=== PATIENT | female | born 2000 | race African-American/Black ===

== ENCOUNTER 2019-08-12 19:03 | Day surgery (SDC) | payer OTHER ==
[2019-08-12 19:32] VITALS: BP 118/61; TEMP 98.3; BMI 32.4
[2019-08-12] MEDS ORDERED: hydrALAZINE 20 MG/ML VIAL SLOW IVP PRN (19:52)
[2019-08-12 20:30] LABS: #Basophils 0.1 thou/uL (0.0-0.2); #Eosinphils 0.1 thou/uL (0.0-0.7); #Lymphocytes 1.5 thou/uL (1.20-3.40); #Monocytes 0.7 thou/uL (0.11-0.59); #Neutrophils 5.2 thou/uL (1.40-6.50); %Basophils 0.7 % (0.0-1.0); %Eosinophils 0.7 % (0.0-10.0); %Lymphocytes 20.2 % (28.0-48.0); %Monocytes 8.7 % (0.0-4.0); %Neutrophils 69.7 % (31.0-61.0); Hemoglobin 9.8 g/dL (12.0-16.0); Mean Corpuscular HGB CONC 32.4 g/dL (32.0-36.0); Mean Corpuscular Hemoglobin 25.6 pg (25.0-35.0); Mean Corpuscular Volume 79.1 fL (78.0-98.0); Platelet Count 181 thou/uL (130-400); RBC Distribution Width 15.9 % (11.5-14.5); Red Blood Cell (RBC) Count 3.81 mill/uL (4.00-5.20); White Blood Cell (WBC) Count 7.5 thou/uL (4.8-10.8)
[2019-08-12 20:49] LABS: ALT (SGPT) 10 U/L (8-55); AST (SGOT) 11 U/L (5-30); Alkaline Phosphatase 108 U/L (40-150); Anion Gap 11 mmol/L (10-20); BUN (Urea Nitrogen) 6 mg/dL (8.4-21.0); Bilirubin, Total 0.2 mg/dL (0.2-1.2); Calc. Creatinine Clearance 215 mL/min (70-130); Calcium 8.5 mg/dL (7.8-10.44); Carbon Dioxide 20 mmol/L (22-29); Chloride 108 mmol/L (98-107); Estimated GFR-MDRD Greater than 90; Globulin 3.2 g/dL (2.4-3.5); Glucose 113 mg/dL (70-105); Potassium 3.4 mmol/L (3.5-5.1); Protein, Total 6.2 g/dL (6.0-8.3); Sodium 136 mmol/L (136-145)
[2019-08-12 21:23] LABS: Bacteria/HPF None Seen HPF (None Seen); Bilirubin Negative (Negative); Blood, Urine Negative (Negative); Clarity Clear (Clear); Glucose, Urine (Dipstick) Normal (Negative); Leukocyte Negative Leu/uL (Negative); Nitrite Negative (Negative); Protein, Urine (Dipstick) Negative (Neg-Trace); RBC/HPF 0-3 HPF (0-3); Squamous Epithelial 0-3 HPF (0-3); Urobilinogen Normal mg/dL (Less than 2); WBC/HPF 0-3 HPF (0-3)
--- NOTE | 2019-08-13 07:36 | SS ---
DATE OF ADMISSION: 08/12/2019 DATE OF DISCHARGE: 08/12/2019 EVALUATING PHYSICIAN: Alexander Peterson MD REGULAR PHYSICIAN: Zeke Walters MD CHIEF COMPLAINT: Upper abdominal pain. HISTORY OF PRESENT ILLNESS: Ms. Manriquez is a 18-year-old black G3, P1, estimated date of confinement, 09/22/2019, who presents complaining of upper abdominal pain since earlier this afternoon. She arrived by ambulance. She denies vaginal bleeding, uterine contractions, nausea, vomiting, fever, chills, or diarrhea. She does not relate this pain to any specific action. Her care has been with Dr. Walters and has been without complications. PAST OBSTETRICAL HISTORY: Includes one section at term for failure to progress. It also appears she had a delivery of a 20-week demise, I am uncertain as to the exact details of this. She is a poor historian in that regard. PAST MEDICAL HISTORY: None. PAST SURGICAL HISTORY: x1, as above. CURRENT MEDICATIONS: vitamins. ALLERGIES: NO KNOWN ALLERGIES. SOCIAL HISTORY: Denies tobacco, alcohol, or drug use. FAMILY HISTORY: Unremarkable. REVIEW OF SYSTEMS: Denies nausea, vomiting, fever, chills, ruptured membranes, or vaginal bleeding. PHYSICAL EXAMINATION: VITAL SIGNS: In triage, her vital signs are stable and she is afebrile. GENERAL: She is quiet, but in no acute distress. ABDOMEN: Soft, nontender, and gravid. There is no guarding or rebound. There is no specific tenderness in either the upper right or upper left quadrant. heart rate tracing is stable with spontaneous accelerations. No significant regular contractions are seen. LABORATORY DATA: White count 7.5, hemoglobin and hematocrit 9.8 and 30.1, platelet count 181,000. Chemistries; sodium 136, potassium 3.4, BUN is 6, creatinine 0.57. Glucose 113, total bilirubin 0.2, AST and ALT are 11 and 10 respectively. Alkaline phosphatase is 108. Urinalysis shows a specific gravity of 1.012 with negative protein, normal glucose, negative ketones, negative blood, negative nitrites, negative bilirubin, and negative leukocyte esterase. ASSESSMENT: 1. A 34-week intrauterine . 2. Suspect reflux. PLAN: The patient will be dismissed home. She was told to use Pepcid over the counter 1-2 tablets twice a day for any discomfort that she has. She has an appointment with Dr. Walters later this week. Job ID: [id number]
== END 2019-08-12 22:10 | disposition home or self-care (01) ==
LOC: L&D/OP 19:03
PROVIDERS: ATTEND Family Medicine
DX: O99.89 Other specified diseases and conditions complicating pregnancy, childbirth and the puerperium (principal); R10.10 Upper abdominal pain, unspecified; Z3A.34 34 weeks gestation of pregnancy
CPT/HCPCS: 36415; 80053; 81003; 85025; 99283

== ENCOUNTER 2019-09-09 21:17 | Day surgery (SDC) | payer OTHER ==
[2019-09-09 21:40] VITALS: BMI 34.9
[2019-09-09] MEDS ORDERED: metroNIDAZOLE 500 MG TAB PO SCH (23:00)
[2019-09-10] MEDS ORDERED: FLU VACC QS2019-20(6MOS UP)/PF 60 MCG/0.5 ML SYRINGE IM ONE (09:00)
[2019-09-11 00:03] LABS: Chlam.trachomatis by PCR,Urine Not Detected (NotDetected)
== END 2019-09-09 23:45 | disposition home or self-care (01) ==
LOC: L&D/OP 21:17
PROVIDERS: ATTEND Family Medicine
DX: O46.90 Antepartum hemorrhage, unspecified, unspecified trimester (principal); Z3A.00 Weeks of gestation of pregnancy not specified
CPT/HCPCS: 87480; 87491; 87510; 87591; 87660

== ENCOUNTER 2019-09-14 19:47 | Day surgery (SDC) | payer OTHER ==
[2019-09-14] MEDS ORDERED: hydrALAZINE 20 MG/ML VIAL SLOW IVP PRN (20:28)
--- NOTE | 2019-09-14 20:30 | PDOC.LDHP ---
Labor and Delivery H&P Chief complaint: other (Right groin pain after walking) HPI: EGA 38 weeks [address] hernández 18 yo at 38 weeks who states was walking today and now has right groin discomfort. No VB, no LOF, no trauma, good FM. No fever Review of Systems: Complete ROS performed and as per HPI Current gestational age (weeks): 38 (4 days) Grav: 3 Para: 1 OB History Details: CS X1 Current complications: none Abnormal US findings: No Current medications: pre-josy vitamins Previous surgical history: low tranverse CS Allergies/Adverse Reactions: Allergies Allergy/AdvReac Type Severity Reaction Status Date / Time No Known Allergies Allergy Verified 08/12/19 19:25 Social history: none - Physical Exam Vital signs reviewed and normal: yes (115/63 107 98 20) Heart: RRR Lungs: CTAB Abdomen: gravid Extremeties: no edema FHT: category 1 [place] contractions every: none - Assessment Discomforts of preg at 38 weeks 4 days after walking. Location of pain suspcious for musculoskeletal spasm. No evidence Labor at this time. Has RTCS scheduled 09/22 - Plan Plan: observation in L&D (reassurrance give. May follow up in 24 hrs. NST reactive)
[2019-09-14 21:23] VITALS: BP 115/63; TEMP 98; BMI 33.7
== END 2019-09-14 21:09 | disposition home or self-care (01) ==
LOC: L&D/OP 19:47
PROVIDERS: ATTEND Family Medicine
DX: O99.89 Other specified diseases and conditions complicating pregnancy, childbirth and the puerperium (principal); R10.30 Lower abdominal pain, unspecified; O34.211 Maternal care for low transverse scar from previous cesarean delivery; Z3A.38 38 weeks gestation of pregnancy

== ENCOUNTER 2019-09-22 09:16 | Inpatient (IN) | payer OTHER ==
[2019-09-22] MEDS ORDERED: CEFAZOLIN 2 GM in Premix Bag 1 BAG IVPB SCH (09:22)
[2019-09-22] MEDS ORDERED: Promethazine HCl 25 MG/ML VIAL IM PRN ×4 (09:22→14:44)
[2019-09-22] MEDS ORDERED: Ondansetron PF 4 MG/2 ML Vial IVP PRN ×3 (09:22→14:44)
[2019-09-22] MEDS ORDERED: hydrALAZINE 20 MG/ML VIAL SLOW IVP PRN ×2 (09:22→14:44)
[2019-09-22] MEDS ORDERED: Bicitra 30 ML UDCUP PO SCH (09:22)
[2019-09-22] MEDS ORDERED: Lactated Ringer's 1,000 ML IV SCH (09:22)
[2019-09-22 10:10] VITALS: BMI 34.1
[2019-09-22 10:11] LABS: Hemoglobin 9.9 g/dL (12.0-16.0); Mean Corpuscular HGB CONC 31.5 g/dL (32.0-36.0); Mean Corpuscular Hemoglobin 23.5 pg (25.0-35.0); Mean Corpuscular Volume 74.5 fL (78.0-98.0); Mean Platelet Volume 8.9 fL (7.4-10.4); Platelet Count 202 thou/uL (130-400); RBC Distribution Width 16.1 % (11.5-14.5); White Blood Cell (WBC) Count 6.8 thou/uL (4.8-10.8)
[2019-09-22] MEDS ORDERED: FLU VACC QS2019-20(6MOS UP)/PF 60 MCG/0.5 ML SYRINGE IM ONE (10:30)
[2019-09-22 10:50] LABS: HBSAg Index 0.16 S/CO (0-0.99); Hep B Surf Ag Non-Reactive S/CO (NonReactive); Syphilis Antibody Nonreactive (Nonreactive); Syphilis Antibody Index 0.03 S/CO (<1.00 Non-Reactive)
[2019-09-22] MEDS ORDERED: NS / Oxytocin 40 units/1000ml 1,000 ML ONE (11:23)
[2019-09-22] MEDS ORDERED: MORPHINE 5 MG/10 ML PF VIAL ONE (12:08)
[2019-09-22] MEDS ORDERED: Oxytocin 10 UNITS/ML VIAL ONE ×2 (12:08→12:57)
[2019-09-22] MEDS ORDERED: Ondansetron PF 4 MG/2 ML Vial ONE (12:08)
[2019-09-22] MEDS ORDERED: ePHEDrine/0.9% NaCl/PF SYRINGE 50 mg/10 ml ONE (12:22)
[2019-09-22] MEDS ORDERED: PHENYLEPHRINE-NS 100 MCG/ML 10 ML SYRINGE ONE (12:22)
[2019-09-22] MEDS ORDERED: Promethazine HCl 25 MG/ML VIAL SLOW IVP PRN (13:15)
[2019-09-22] MEDS ORDERED: Ondansetron HCl/PF 4 MG/2 ML Vial IVP PRN (13:15)
[2019-09-22] MEDS ORDERED: Promethazine HCl 25 MG SUPP PR PRN (13:15)
[2019-09-22] MEDS ORDERED: Naloxone HCl 0.4 mg/ml Vial IV PRN (13:15)
[2019-09-22] MEDS ORDERED: Ketorolac Tromethamine 30 MG/ML VIAL IVP PRN (13:15)
[2019-09-22] MEDS ORDERED: Naloxone HCl 0.4 mg/ml Vial IVP PRN ×2 (13:15)
[2019-09-22] MEDS ORDERED: diphenhydrAMINE 50 MG/ML VIAL IVP PRN (13:15)
[2019-09-22] MEDS ORDERED: Communication Order-Pharmacy FS PRN (13:15)
[2019-09-22] MEDS ORDERED: Ketorolac Tromethamine 30 MG/ML VIAL ONE (13:44)
[2019-09-22] MEDS ORDERED: Simethicone Chewable 80 MG TAB PO PRN (14:44)
[2019-09-22] MEDS ORDERED: Methylergonovine 0.2 MG/ML VIAL IM PRN (14:44)
[2019-09-22] MEDS ORDERED: Lanolin Ointment 7 GM TUBE TOP PRN (14:44)
[2019-09-22] MEDS ORDERED: Bisacodyl 10 MG SUPP PR PRN (14:44)
[2019-09-22] MEDS ORDERED: NS / Oxytocin 40 units/1000ml 1,000 ML IV SCH (14:44)
[2019-09-22] MEDS ORDERED: Meperidine HCl/PF 25 MG/ML VIAL IM PRN (14:44)
[2019-09-22] MEDS ORDERED: HYDROcodone/Acetaminophen 5/325 mg Tablet PO PRN (14:44)
[2019-09-22] MEDS ORDERED: Misoprostol 200 MCG TAB PR PRN (14:44)
[2019-09-22] MEDS ORDERED: diphenhydrAMINE 25 MG CAP PO PRN (14:44)
[2019-09-22] MEDS: Ferrous Sulfate 325 MG TAB PO SCH (15:47)
[2019-09-22] MEDS: Ketorolac Tromethamine 30 MG/ML VIAL IVP SCH (21:49)
[2019-09-22] MEDS: Docusate Calcium (SURFAK) 240 MG CAP PO SCH (23:30)
[2019-09-22] MEDS ORDERED: Ketorolac Tromethamine 30 MG/ML VIAL IVP SCH (23:59)
[2019-09-23] MEDS ORDERED: Sodium Chloride 0.9% 10 ML ONE (03:43)
[2019-09-23] MEDS: Ketorolac Tromethamine 30 MG/ML VIAL IVP SCH ×2 (03:49→11:32)
[2019-09-23 05:57] LABS: Hemoglobin 9.4 g/dL (12.0-16.0); Mean Corpuscular HGB CONC 30.7 g/dL (32.0-36.0); Mean Corpuscular Hemoglobin 22.9 pg (25.0-35.0); Mean Corpuscular Volume 74.5 fL (78.0-98.0); Platelet Count 157 thou/uL (130-400); Red Blood Cell (RBC) Count 4.09 mill/uL (4.00-5.20); White Blood Cell (WBC) Count 6.7 thou/uL (4.8-10.8)
[2019-09-23] MEDS: Docusate Calcium (SURFAK) 240 MG CAP PO SCH ×2 (11:33→22:26)
[2019-09-23] MEDS: Ferrous Sulfate 325 MG TAB PO SCH ×2 (11:33→22:22)
[2019-09-23] MEDS: Prenatal Vitamin 1 TAB PO SCH (11:34)
[2019-09-23] MEDS ORDERED: Adacel (T-DAP) 0.5 ML SYRINGE IM ONE (14:44)
[2019-09-23] MEDS: Ibuprofen 800 MG TAB PO SCH ×2 (15:44→22:26)
[2019-09-23] MEDS: HYDROcodone/Acetaminophen 5/325 mg Tablet PO PRN (19:48)
[2019-09-24] MEDS: HYDROcodone/Acetaminophen 5/325 mg Tablet PO PRN ×5 (04:36→21:16)
[2019-09-24] MEDS: Ibuprofen 800 MG TAB PO SCH ×3 (06:16→21:17)
[2019-09-24] MEDS: Docusate Calcium (SURFAK) 240 MG CAP PO SCH ×2 (08:38→21:17)
[2019-09-24] MEDS: Ferrous Sulfate 325 MG TAB PO SCH ×2 (08:38→16:32)
[2019-09-24] MEDS: Prenatal Vitamin 1 TAB PO SCH (08:38)
--- NOTE | 2019-09-24 21:16 | OP ---
DATE OF PROCEDURE: 09/22/2019 RESIDENT: Yuli Campbell DO PROCEDURE: Repeat low-transverse section. PREOPERATIVE DIAGNOSES: 1. Term intrauterine . 2. Previous section. 3. History of at 20 weeks. POSTOPERATIVE DIAGNOSES: 1. Term intrauterine , delivered. 2. Previous section. ANESTHESIA: Spinal. INDICATIONS: This is a 18-year-old G3, P1-0-1-1 at 39 weeks gestation who presented for repeat scheduled . PROCEDURE IN DETAIL: After risks, benefits, and alternatives were explained to the patient, she gave informed consent. Preoperative antibiotics included cefazolin 2 g IV. The patient was taken to the operating room and spinal anesthesia was initiated. She was placed in supine position with left tilt, and prepped and draped in usual sterile fashion. A Pfannenstiel incision was made with a scalpel and carried down to the level of the fascia, which was sharply nicked. The fascial cut was extended bilaterally with Valdez scissors. Inferior and superior edges of the cut fascial edges were elevated with Jason clamps and underlying rectus muscles were sharply and bluntly dissected free. The recti were divided digitally and retracted manually. The peritoneum was entered bluntly and retracted manually. Bladder blade was placed. A low-transverse score was made with a scalpel and the uterus was entered in the midline with the scalpel. Clear fluid was seen. Hysterotomy was extended manually. Infant was noted to be vertex and was easily delivered by fundal pressure. Mouth and nares were bulb suctioned. Cord was clamped and cut and grossly normal. Female infant was handed to awaiting nurse. Cord blood was obtained. Placenta was manually extracted spontaneously and delivered, and found to be intact with 3-vessel cord and discarded. The uterus was externalized and the endometrium was curetted with a dry lap. The bladder blade was replaced and the uterus was closed with a running locking #1 Monocryl followed by several [id number] stitches for hemostasis. The abdomen was irrigated with saline and suctioned free of clots. The uterus was internalized and the hysterotomy were again noted to be hemostatic. The fascia was closed with a running nonlocking 0 PDS suture. The subcutaneous tissue was irrigated and bleeders were cauterized. Subcutaneous tissue was closed using 2-0 plain gut. The skin was approximated with avani and pressure dressing was placed. All counts were correct. The patient tolerated the procedure well and was taken to the recovery room in stable condition. ESTIMATED BLOOD LOSS: 640 mL. COMPLICATIONS: None. SPECIMENS: Cord blood sent to lab for blood type. FINDINGS: Grossly normal female infant with Apgars of 8 and 9 at 1 and 5 minutes respectively. Grossly normal placenta with 3-vessel cord discarded. DRAINS: Wolfe to gravity, draining clear urine. Job ID: [id number]
[2019-09-25] MEDS: HYDROcodone/Acetaminophen 5/325 mg Tablet PO PRN ×2 (04:57→10:24)
[2019-09-25] MEDS: Ibuprofen 800 MG TAB PO SCH ×2 (04:59→14:07)
[2019-09-25] MEDS: Ferrous Sulfate 325 MG TAB PO SCH ×2 (08:50→17:12)
[2019-09-25] MEDS: Prenatal Vitamin 1 TAB PO SCH (08:51)
[2019-09-25] MEDS: Docusate Calcium (SURFAK) 240 MG CAP PO SCH (08:51)
[2019-09-25 18:10] VITALS: BP 130/86; TEMP 98.3
== END 2019-09-25 18:05 | disposition home or self-care (01) | DRG 788 ==
LOC: L&D 09:16 → 3SW 16:19
PROVIDERS: ADMIT Family Medicine; ATTEND Family Medicine
PROC: 10D00Z1 Extraction of Products of Conception, Low, Open Approach (ICD-10-PCS; principal; 2019-09-22)
PROC: 3E02340 Introduction of Influenza Vaccine into Muscle, Percutaneous Approach (ICD-10-PCS; 2019-09-22)
DX: O34.211 Maternal care for low transverse scar from previous cesarean delivery (principal); Z3A.39 39 weeks gestation of pregnancy; Z37.0 Single live birth; Z23 Encounter for immunization
CPT/HCPCS: 36415; 51702; 85027; 86780; 86850; 86900; 86901; 87340; J1885; J2274; J2405; J2590

== ENCOUNTER 2019-09-30 13:49 | Inpatient (IN) | payer OTHER ==
[~2019-09-30 13:49] MED LIST: Iopamidol 370 76% 100 ML VIAL ONE
[2019-09-30 14:20] LABS: #Eosinphils 0.1 thou/uL (0.0-0.7); #Lymphocytes 1.1 thou/uL (1.20-3.40); #Monocytes 0.5 thou/uL (0.11-0.59); #Neutrophils 9.7 thou/uL (1.40-6.50); %Eosinophils 0.6 % (0.0-10.0); %Neutrophils 85.4 % (31.0-61.0); Hemoglobin 12.2 g/dL (12.0-16.0); Mean Corpuscular HGB CONC 31.7 g/dL (32.0-36.0); Mean Corpuscular Hemoglobin 24.2 pg (25.0-35.0); Mean Corpuscular Volume 76.5 fL (78.0-98.0); Mean Platelet Volume 8.2 fL (7.4-10.4); Platelet Count 233 thou/uL (130-400); RBC Distribution Width 16.4 % (11.5-14.5); Red Blood Cell (RBC) Count 5.03 mill/uL (4.00-5.20); White Blood Cell (WBC) Count 11.4 thou/uL (4.8-10.8)
[2019-09-30 14:49] LABS: ALT (SGPT) 40 U/L (8-55); AST (SGOT) 14 U/L (5-30); Albumin 3.4 g/dL (3.5-5.0); Alkaline Phosphatase 127 U/L (40-100); Anion Gap 15 mmol/L (10-20); BUN (Urea Nitrogen) 8 mg/dL (8.4-21.0); Bilirubin, Total 0.5 mg/dL (0.2-1.2); Calc. Creatinine Clearance 0 mL/min (70-130); Calcium 8.9 mg/dL (7.8-10.44); Carbon Dioxide 20 mmol/L (22-29); Chloride 107 mmol/L (98-107); Estimated GFR-MDRD Greater than 90; Globulin 3.6 g/dL (2.4-3.5); Glucose 77 mg/dL (70-105); Lipase 5 U/L (8-78); Sodium 138 mmol/L (136-145)
[2019-09-30 15:02] LABS: BHCG - Serum POSITIVE (NEGATIVE); Pregs Control Background? CLEAR/WHITE (CLR/WHITE); Pregs Control Bar Appear? YES (CONTROL BAR)
[2019-09-30] MEDS ORDERED: Morphine 4 MG/ML VIAL ONE (15:31)
[2019-09-30] MEDS ORDERED: Fentanyl 100 MCG/2 ML VIAL ONE ×2 (16:11→17:36)
--- NOTE | 2019-09-30 16:30 | ULT ---
Exam: Pelvic ultrasound HISTORY: Severe lower abdominal pain. Patient is 8 days . COMPARISON: None TECHNIQUE: Multiple grayscale and color Doppler images were obtained in a transabdominal and transvag inal pelvic ultrasound. FINDINGS: CERVIX: Unremarkable UTERUS: Limited evaluation secondary to patient's extreme pain and patient's inability to empty urina ry bladder. However, no definite lesion is seen involving the uterus. The uterus measures 11.2 cm x 5.8 cm x 10.2 cm which is mildly enlarged and likely related to state. ENDOMETRIAL STRIPE: The endometrial stripe is difficult to accurately measure. However, the endometri al stripe is thickened measuring 1.6 cm on transabdominal imaging. Measurement on endovaginal imaging measures just greater than 2 cm in thickness. Diminished attenuation in the region of the end ometrial canal could be related to fluid. No free fluid is present. RIGHT OVARY: Unable to be visualized. LEFT OVARY:Unable to be visualized. IMPRESSION: 1. Nonvisualization of the bilateral ovaries. 2. Endometrial stripe is thickened measuring at least 1.6 cm with endovaginal imaging suggesting that the endometrial stripe is larger in size measuring just greater than 2 cm. Diminished attenuation is seen in the endometrial canal which could be related to fluid in the endometrial canal. No well-de fined fluid collection is identified in the endometrial canal. Given suggestion of fluid in endometrial canal, infection cannot be entirely excluded.
[2019-09-30] MEDS ORDERED: Ketorolac Tromethamine 30 MG/ML VIAL ONE (16:38)
[2019-09-30] MEDS ORDERED: Piperacillin/Tazobactam 4.5 GM VIAL ONE (17:36)
[2019-09-30 18:07] LABS: Blood, Urine Large (Negative); Glucose, Urine (Dipstick) Negative (Negative); Leukocyte Moderate (Negative); Nitrite Negative (Negative); Protein, Urine (Dipstick) 100 mg/dL (Neg-Trace)
[2019-09-30 18:08] LABS: Clarity Turbid (Clear)
[2019-09-30 18:17] LABS: Bilirubin Negative (Negative)
[2019-09-30 18:29] LABS: RBC/HPF Greater than 50 HPF (0-3); WBC/HPF Greater Than 50 HPF (0-3)
[2019-09-30 18:30] LABS: Bacteria/HPF Rare-Few HPF (None Seen); Squamous Epithelial 0-3 HPF (0-3)
--- NOTE | 2019-09-30 18:33 | CT ---
CT Abdomen Pelvis W Con: 09/30/2019 5:21 PM CLINICAL INFORMATION: Abdominal pain that began last night. The patient is 8 days . COMPARISON: 02/19/2015; pelvic ultrasound 09/30/2019 TECHNIQUE: Multiple contiguous axial images were obtained and a CT of the abdomen and pelvis with IV contrast. C oronal and sagittal reformats were performed. FINDINGS: Lower Chest: within normal limits. Abdomen: Liver: within normal limits. Bile Ducts: Normal caliber. Gallbladder: No calcified gallstones. Normal caliber wall. Pancreas: within normal limits. Spleen: within normal limits. Adrenals: within normal limits. Kidneys: within normal limits. Pelvis: Reproductive Organs: The uterus is enlarged consistent with recent state. Ureters: within normal limits. Bladder: within normal limits. Peritoneum: A trace amount of free fluid is seen in the pelvis surrounding the uterus. Bowel: Normal caliber. Normal appendix. Mesentery and Retroperitoneum: No enlarged mesenteric or retroperitoneal lymph nodes. Vessels: Normal. Abdominal Wall: within normal limits. Bones: Within normal limits IMPRESSION: changes of the uterus.
[2019-09-30] MEDS ORDERED: Ondansetron ODT 4 MG TAB SL PRN (21:04)
[2019-09-30] MEDS ORDERED: HYDROcodone/Acetaminophen 5/325 mg Tablet PO PRN (21:04)
[2019-09-30] MEDS ORDERED: Acetaminophen 325 MG TAB PO PRN (21:04)
[2019-09-30] MEDS ORDERED: Ondansetron PF 4 MG/2 ML Vial IVP PRN (21:04)
[2019-09-30 21:14] VITALS: BMI 34.0
[2019-09-30] MEDS: Sodium Chloride 0.9% 1,000 ML IV SCH (21:39)
[2019-09-30] MEDS: HYDROcodone/Acetaminophen 5/325 mg Tablet PO PRN (21:57)
[2019-10-01] MEDS: HYDROcodone/Acetaminophen 5/325 mg Tablet PO PRN (04:24)
[2019-10-01] MEDS: Sodium Chloride 0.9% 1,000 ML IV SCH (05:16)
[2019-10-01] MEDS ORDERED: Acetaminophen 500 MG TAB PO PRN (07:32)
[2019-10-01] MEDS ORDERED: HYDROcodone/Acetaminophen 5/325 mg Tablet PO PRN ×2 (07:33)
[2019-10-01] MEDS ORDERED: Ondansetron PF 4 MG/2 ML Vial IVP PRN (07:54)
[2019-10-01] MEDS: Ibuprofen 800 MG TAB PO SCH ×2 (09:19→16:45)
[2019-10-01] MEDS: Ampicillin/Sulbactam 3 GM in Sodium Chloride 0.9% 100 ML IVPB SCH ×3 (09:21→19:22)
[2019-10-01] MEDS: metroNIDAZOLE 500 MG in Premix Bag 1 BAG IVPB SCH ×2 (10:17→16:46)
[2019-10-01] MEDS: Gentamicin Sulfate 120 MG in Premix Bag 1 BAG IVPB SCH ×2 (11:20→18:10)
[2019-10-02] MEDS: Ibuprofen 800 MG TAB PO SCH ×3 (00:34→17:06)
[2019-10-02] MEDS: metroNIDAZOLE 500 MG in Premix Bag 1 BAG IVPB SCH ×3 (00:34→17:06)
[2019-10-02] MEDS: Ampicillin/Sulbactam 3 GM in Sodium Chloride 0.9% 100 ML IVPB SCH ×3 (02:01→14:55)
[2019-10-02] MEDS: Gentamicin Sulfate 120 MG in Premix Bag 1 BAG IVPB SCH ×3 (02:34→17:07)
[2019-10-02 05:25] LABS: #Eosinphils 0.1 thou/uL (0.0-0.7); #Lymphocytes 1.3 thou/uL (1.20-3.40); #Monocytes 0.4 thou/uL (0.11-0.59); #Neutrophils 5.9 thou/uL (1.40-6.50); %Basophils 0.2 % (0.0-1.0); %Eosinophils 1.1 % (0.0-10.0); %Lymphocytes 16.5 % (28.0-48.0); %Monocytes 5.3 % (0.0-4.0); Mean Corpuscular HGB CONC 31.1 g/dL (32.0-36.0); Mean Corpuscular Hemoglobin 23.9 pg (25.0-35.0); Mean Corpuscular Volume 76.9 fL (78.0-98.0); Mean Platelet Volume 8.1 fL (7.4-10.4); Platelet Count 222 thou/uL (130-400); Red Blood Cell (RBC) Count 4.19 mill/uL (4.00-5.20); White Blood Cell (WBC) Count 7.7 thou/uL (4.8-10.8)
[2019-10-02 05:45] LABS: ALT (SGPT) 19 U/L (8-55); AST (SGOT) 7 U/L (5-30); Albumin 2.8 g/dL (3.5-5.0); Alkaline Phosphatase 95 U/L (40-100); Anion Gap 16 mmol/L (10-20); BUN (Urea Nitrogen) 8 mg/dL (8.4-21.0); Bilirubin, Total 0.3 mg/dL (0.2-1.2); Calc. Creatinine Clearance 186 mL/min (70-130); Calcium 8.2 mg/dL (7.8-10.44); Carbon Dioxide 16 mmol/L (22-29); Chloride 112 mmol/L (98-107); Estimated GFR-MDRD Greater than 90; Globulin 3.2 g/dL (2.4-3.5); Glucose 145 mg/dL (70-105); Potassium 3.9 mmol/L (3.5-5.1); Sodium 140 mmol/L (136-145)
[2019-10-02 20:37] VITALS: BP 117/79; TEMP 97.6
[2019-10-02] MEDS ORDERED: Amoxicillin/Potassium Clav 875 MG TAB PO SCH (21:00)
--- NOTE | 2019-10-02 22:01 | PRG ---
DATE OF SERVICE: 10/02/2019 SUBJECTIVE: Ms. Manriquez is feeling much better. Has required only ibuprofen for pain today. She is tolerating a regular diet and is ambulatory in the room. No problems with voiding or stooling. OBJECTIVE: VITAL SIGNS: Temperature, afebrile. She has remained afebrile since admission. Pulse and blood pressure are normal. CHEST: Clear. HEART: Regular rate and rhythm. ABDOMEN: Soft. There is mild tenderness only in the suprapubic region, but no guarding or rebound tenderness. Incision remains clean and dry. Her Steri-Strips were discontinued during today's visit. LABORATORY DATA: CBC this morning shows a white count of 7.7, improved. Electrolytes remain unremarkable. Blood cultures are negative at 48 hours. Urine cultures showed mixed miles. PLAN: We will discontinue her IV antibiotics, switch her to oral antibiotics. Plan for discharge in the morning instead of making her go home late tonight. DISCHARGE INSTRUCTIONS: 1. Activity: No heavy exertion x4 weeks. 2. New medications: Augmentin 875 mg b.i.d. x10 days. She will continue scheduled p.r.n. ibuprofen and hydrocodone; iron daily Colace p.r.n. 3. Diet: Regular. 4. Followup: On 10/[address] Walters. Job ID: [id number]
--- NOTE | 2019-10-02 22:16 | HP ---
CHIEF COMPLAINT: Abdominal pain. HISTORY OF PRESENT ILLNESS: This is a 18-year-old black female, G3, P2-0-1-2, who is status post a repeat on 09/22/2019, who reports onset of suprapubic and right lower quadrant abdominal pain with fever for 1 day prior to admission. Pain is constant, it waxes and wanes, unrelieved by her pain medications that she had been taking. Fevers were subjective. She does not have a thermometer. Denies nausea or vomiting. Denies troubles with her incision. She is voiding and stooling normally. No sick contacts. PAST MEDICAL HISTORY: No chronic disease. CURRENT MEDICATIONS: Include; 1. Ibuprofen. 2. Hydrocodone. 3. Iron. 4. Colace. ALLERGIES: SHE HAS NO KNOWN DRUG ALLERGIES. PAST SURGICAL HISTORY: Include x2. FAMILY HISTORY: Noncontributory. SOCIAL HISTORY: Denies tobacco, alcohol, or drugs. REVIEW OF SYSTEMS: CONSTITUTIONAL: See HPI. HEENT: Eyes, no visual changes. ENT, no oropharyngeal lesions. No epistaxis. No rhinorrhea. CARDIOVASCULAR: No chest pain. No edema. PULMONARY: No cough, no hemoptysis, no dyspnea. GI: No nausea, or vomiting. No change in bowel habits. No hematemesis, or hematochezia. : No abnormal uterine bleeding apart from an expected lochia. SKIN: No rashes or lesions. NEUROLOGIC: No weakness, numbness, or paresthesias. PHYSICAL EXAMINATION: VITAL SIGNS: Temperature 102 at admission, currently afebrile, pulse 110, blood pressure normal. HEENT: Unremarkable. LUNGS: Clear with good air entry. HEART: Regular rate and rhythm. No murmurs. ABDOMEN: Soft. There is mild to moderate tenderness in the suprapubic and right lower quadrant region as well as the right upper quadrant, although this is less than the other areas that are uncomfortable. There is no guarding or rebound tenderness. Incision is clean and dry with no drainage. There is a hint of some hypergranulation tissue approximately 1 cm in length along the superior edge of the incision on the left corner. EXTREMITIES: 1+ edema bilaterally. LABORATORY DATA: CBC shows a white count of 12, with a normal H and H and platelets. Electrolytes were normal. Urinalysis shows greater than 50 WBCs and RBCs with moderate leukocyte esterase. DIAGNOSTIC STUDIES: CT scan of the abdomen and pelvis is unremarkable with only anticipated changes in the uterus. Pelvic ultrasound shows thickened endometrium and scant free fluid in the pelvis. ASSESSMENT AND PLAN: 1. fever, suspected endometritis. 2. Hemorrhagic cystitis. We will admit to , start on IV antibiotics. Blood cultures and urine cultures have been drawn. Aggressively hydrate. Antipyretics, and scheduled and p.r.n. analgesics. We will await blood cultures. Job ID: [id number] [facility]
[2019-10-03] MEDS: Ibuprofen 800 MG TAB PO SCH (00:25)
== END 2019-10-03 07:13 | disposition home or self-care (01) | DRG 776 ==
LOC: ERS 13:49 → T4-B 20:00
PROVIDERS: ADMIT Family Medicine; ATTEND Family Medicine
DX: O86.22 Infection of bladder following delivery (principal); O86.4 Pyrexia of unknown origin following delivery; O86.12 Endometritis following delivery; R50.9 Fever, unspecified; O90.89 Other complications of the puerperium, not elsewhere classified; B96.89 Other specified bacterial agents as the cause of diseases classified elsewhere
CPT/HCPCS: 36415; 74177; 76856; 80053; 81003; 81015; 83605; 83690; 84703; 85025; 87040; 87086; 94760; 96365; 96367; 96375; 96376; A4353; J0295; J1580; J1885; J2270; J2543; J3010; J3370; J3490; Q9967

== ENCOUNTER 2020-05-15 11:25 | Emergency (ER) | payer OTHER ==
[2020-05-15 12:42] LABS: Bacteria/HPF None Seen HPF (None Seen); Bilirubin Negative (Negative); Blood, Urine 1+ (Negative); Clarity Clear (Clear); Glucose, Urine (Dipstick) Normal (Negative); Leukocyte Negative Leu/uL (Negative); Nitrite Negative (Negative); Protein, Urine (Dipstick) Negative (Neg-Trace); RBC/HPF 0-3 HPF (0-3); Squamous Epithelial 0-3 HPF (0-3); Urobilinogen Normal mg/dL (Less than 2); WBC/HPF 0-3 HPF (0-3)
[2020-05-15 12:49] LABS: Pregnancy Test - Urine (BHCG) Negative (Negative); Pregu Control Background? CLEAR/WHITE (CLR/WHITE); Pregu Control Bar Appear? YES (CONTROL BAR)
== END 2020-05-15 13:06 | disposition home or self-care (01) ==
LOC: ERS 11:25
DX: N92.6 Irregular menstruation, unspecified (principal); J45.909 Unspecified asthma, uncomplicated; F90.9 Attention-deficit hyperactivity disorder, unspecified type
CPT/HCPCS: 81003; 81015; 81025; 87086; 99284